=== PATIENT | male | born 1965 | race Caucasian/White ===

== ENCOUNTER 2018-02-27 11:11 | Day surgery (SDC) | payer MEDICARE, MEDICAID ==
[2018-02-27] MEDS ORDERED: Midazolam HCl 2 mg/2 ml Vial ONE (13:20)
[2018-02-27] MEDS ORDERED: PROPOFOL 200 MG/20 ML VIAL ONE (15:11)
--- NOTE | 2018-02-27 15:42 | OP ---
DATE OF PROCEDURE: 02/27/2018 PROCEDURE PERFORMED: Colonoscopy (diagnostic). INDICATION FOR PROCEDURE: Screening for malignant neoplasm of the colon. DESCRIPTION OF PROCEDURE: After the risks and benefits of the procedure were explained to the patien t's surrogate including risks of bleeding, infection, perforation, reaction to anesthesia and/or pain , informed consent was obtained. The patient was then taken to the endoscopy suite where deep sedati on was administered via propofol and anesthesia support. After adequate anesthesia was achieved, the standard colonoscope was then introduced into the rectum and advanced to the terminal ileum with the findings listed below. The quality of the prep was excellent. The patient tolerated the procedure well with no immediate perioperative complications. FINDINGS: Digital rectal exam: Normal. Colon findings: Normal appearing mucosa was seen within the terminal ileum and at the appendiceal or ifice and ileocecal valve. Normal appearing mucosa was seen in the cecum, ascending, transverse, maranda cending, sigmoid colon, and rectum. Normal findings were seen on rectal retroflexion. IMPRESSION: Normal colonoscopy. RECOMMENDATIONS: 1. We continue current regimen for constipation. 2. We would repeat colonoscopy in 10 years as part of screening for colonic neoplasm. 3. The patient can follow up in the GI clinic as needed.
== END 2018-02-27 15:36 | disposition home or self-care (01) ==
LOC: SDC 11:11
PROVIDERS: ATTEND Internal Medicine
PROC: 0DJD8ZZ Inspection of Lower Intestinal Tract, Via Natural or Artificial Opening Endoscopic (ICD-10-PCS; principal; 2018-02-27)
DX: Z12.11 Encounter for screening for malignant neoplasm of colon (principal); R63.4 Abnormal weight loss; E78.00 Pure hypercholesterolemia, unspecified; Z79.899 Other long term (current) drug therapy
CPT/HCPCS: J2250; J2704